=== PATIENT | male | born 1985 | race Caucasian/White ===

== ENCOUNTER 2017-09-29 06:27 | Inpatient (IN) | payer MEDICAID ==
[2017-09-29] MEDS ORDERED: Scopolamine 1.5 MG Transdermal Patch TRDERM ONE (06:30)
[2017-09-29] MEDS ORDERED: Gabapentin 300 MG Cap PO ONE (06:30)
[2017-09-29] MEDS ORDERED: Acetaminophen 500 MG Tab PO ONE (06:30)
[2017-09-29] MEDS ORDERED: Celecoxib 200 MG Cap PO ONE (06:30)
[2017-09-29] MEDS ORDERED: fentaNYL 250 MCG/5 ML SDV ONE ×3 (06:44→10:20)
[2017-09-29] MEDS ORDERED: Glycopyrrolate 0.2 MG/ML 5 ML MDV ONE (06:44)
[2017-09-29] MEDS ORDERED: Succinylcholine 200 MG/10 ML MDV ONE (06:44)
[2017-09-29] MEDS ORDERED: Ondansetron 4 MG/2 ML SDV ONE (06:44)
[2017-09-29] MEDS ORDERED: Neostigmine Methylsulfate 1 MG/ML 5 ML Syringe ONE (06:44)
[2017-09-29] MEDS ORDERED: Propofol 200 MG/20 ML SDV ONE (06:44)
[2017-09-29] MEDS ORDERED: Rocuronium 50 MG/5 ML Vial ONE (06:44)
[2017-09-29] MEDS ORDERED: Dexamethasone 4 MG/ML SDV ONE (06:44)
[2017-09-29] MEDS ORDERED: Dextrose 5%-Lactated Ringers 1,000 ML IV SCH (07:00)
[2017-09-29] MEDS ORDERED: cefOXitin 2 GM Vial ONE (07:35)
[2017-09-29] MEDS ORDERED: cefOXitin 2 GM in Sodium Chloride 0.9% 50 ML IV ONE (08:15)
[2017-09-29] MEDS ORDERED: Ketamine 500 MG/5 ML MDV IV SCH (08:30)
[2017-09-29] MEDS ORDERED: Ropivacaine 60 ML, Dexamethasone 8 MG, EPINEPHrine 0.4 MG, Sodium Chloride 0.9% 17.6 ML NERVRT SCH ×4 (08:30)
[2017-09-29] MEDS ORDERED: Lidocaine 0.4%/D5W 2 GM/500 ML BAG IV SCH (08:30)
[2017-09-29] MEDS ORDERED: Lidocaine 2% 100 MG/5 ML Syringe IVPUSH ONE (08:30)
[2017-09-29] MEDS ORDERED: Lactated Ringers 1,000 ML ONE (09:37)
[2017-09-29] MEDS ORDERED: hydrOXYzine HCl 100 MG/2 ML SDV IM ONE (11:13)
[2017-09-29] MEDS ORDERED: fentaNYL 100 MCG/2 ML SDV IVPUSH ONE (11:19)
[2017-09-29] MEDS ORDERED: Labetalol 20 MG/4 ML Syringe IVPUSH PRN (13:00)
[2017-09-29] MEDS ORDERED: diphenhydrAMINE 50 MG/ML SDV IVPUSH PRN (13:00)
[2017-09-29] MEDS ORDERED: hydrOXYzine HCl 100 MG/2 ML SDV IM PRN (13:00)
[2017-09-29] MEDS ORDERED: Metoclopramide 10 MG/2 ML SDV IVPUSH PRN (13:00)
[2017-09-29] MEDS ORDERED: Ondansetron 4 MG/2 ML SDV IVPUSH PRN (13:00)
[2017-09-29] MEDS: Acetaminophen Soln 650 MG/20.3 ML UD Cup PO SCH ×2 (13:33→21:00)
[2017-09-29] MEDS: Gabapentin 250 MG/5 ML Solution ML 470 ML Bottle PO SCH ×2 (13:33→21:00)
[2017-09-29] MEDS: cefOXitin 2 GM in Sodium Chloride 0.9% 50 ML IV SCH ×2 (13:43→20:56)
[2017-09-29] MEDS: Pantoprazole 40 MG Vial IVPUSH SCH (13:50)
[2017-09-29] MEDS: MVI, Adult with Vitamin K 10 ML, Thiamine 100 MG, Chromium/Copper/Mang/Selen/Zn 1 ML in... IV SCH ×4 (17:36)
[2017-09-29] MEDS: Heparin Sodium 5,000 Units/ML Vial SUBCUT SCH ×2 (17:36→23:39)
[2017-09-29] MEDS: Dextrose 5%-Lactated Ringers 1,000 ML IV SCH (23:55)
[2017-09-30] MEDS: MVI, Adult with Vitamin K 10 ML, Thiamine 100 MG, Chromium/Copper/Mang/Selen/Zn 1 ML in... IV SCH ×4
[2017-09-30] MEDS: cefOXitin 2 GM in Sodium Chloride 0.9% 50 ML IV SCH ×2 (01:56→07:38)
[2017-09-30] MEDS: Acetaminophen Soln 650 MG/20.3 ML UD Cup PO SCH ×4 (01:57→20:02)
[2017-09-30] MEDS ORDERED: Iohexol 647 MG/ML 50 ML SDV PO STA (02:08)
[2017-09-30] MEDS: Dextrose 5%-Lactated Ringers 1,000 ML IV SCH (06:12)
[2017-09-30] MEDS: Celecoxib 200 MG Cap PO SCH (07:29)
--- NOTE | 2017-09-30 07:35 | PCM.SURGPN ---
- General Info Date of Service: 09/30/17 Date of Surgery/Procedure: 09/29/17 POD#: 1 Post-Op Diagnosis: Johan (BMI) 57.86 Functional Status: Reports: Pain Controlled, Tolerating Diet, Urinating - Review of Systems General: Reports: No Symptoms HEENT: Reports: No Symptoms Pulmonary: Reports: No Symptoms Cardiovascular: Reports: Chest Pain (sharp left shoulder pain that radiates to the chest with breathing) Gastrointestinal: Reports: No Symptoms, Abdominal Pain (incision sites) Genitourinary: Reports: No Symptoms Musculoskeletal: Reports: Shoulder Pain (left shoulder pain with breathing) Skin: Reports: No Symptoms Neurological: Reports: No Symptoms Psychiatric: Reports: No Symptoms Systems Review Comment:: Patient reports that he is feeling well today. Had some nausea this morning, however notes this is improving. Is tolerating diet. Notes that he has some left sided sharp shoulder pain that radiates to his left sided chest with inspiration. - Patient Data Vitals - Most Recent: Last Vital Signs Temp 37.3 C 09/30/17 07:14 Pulse 92 09/30/17 07:14 Resp 16 09/30/17 07:14 BP 136/79 09/30/17 07:14 Pulse Ox 95 09/30/17 07:14 Weight - Most Recent: 189.602 kg I&O - Last 24 Hours: Intake & Output 09/29/17 09/30/17 09/30/17 22:59 06:59 14:59 Intake Total 230 1950 Output Total 925 2305 Balance -695 -355 Lab Results Last 24 Hrs: Laboratory Results - last 24 hr 09/29/17 Range/Units 06:59 Blood Type O POSITIVE Gel Antibody Screen Negative Med Orders - Current: Current Medications Acetaminophen (Tylenol) 650 mg PO Q6H [facility] Last Admin: 09/30/17 01:57 Dose: 650 mg Celecoxib (Celebrex) 200 mg PO DAILY@0800 [facility] Last Admin: 09/30/17 07:29 Dose: 200 mg Cyanocobalamin (Vitamin B12) 1,000 mcg IM ONETIME ONE Stop: 10/01/17 09:01 Diphenhydramine HCl (Benadryl) 25 - 50 mg IVPUSH Q4H PRN PRN Reason: ITCHING Gabapentin (Neurontin) 300 mg PO TID [facility] Last Admin: 09/29/17 21:00 Dose: 300 mg Heparin Sodium (Porcine) (Heparin Sodium) 5,000 units SUBCUT Q8H [facility] Last Admin: 09/29/17 23:39 Dose: 5,000 units Hydroxyzine HCl (Vistaril) 75 - 100 mg IM Q4H PRN PRN Reason: pain Last Admin: 09/29/17 13:07 Dose: 100 mg Dextrose/Lactated Ringer's (Dextrose 5%-Lactated Ringers) 1,000 mls @ 175 mls/ hr IV ASDIRECTED [facility] Last Admin: 09/30/17 06:12 Dose: 175 mls/hr Multivitamins/Minerals 10 ml/Thiamine HCl 100 mg/ Chromium/Copper/Manganese/ Seleni/Zn 1 ml/ Dextrose/Lactated Ringer's 1,012 mls @ 175 mls/hr IV DAILY@ 1600 [facility] Last Admin: 09/30/17 00:00 Dose: 175 mls/hr Cefoxitin Sodium 2 gm/ Sodium (Chloride) 50 mls @ 100 mls/hr IV Q6H [facility] Stop: 09/30/17 08:29 Last Admin: 09/30/17 01:56 Dose: 100 mls/hr Labetalol HCl (Normodyne) 5 - 15 mg IVPUSH Q1H PRN PRN Reason: SBP over 160 OR DBP over 95 Metoclopramide HCl (Reglan) 10 mg IVPUSH Q6H PRN PRN Reason: NAUSEA NOT CONTROL BY ZOFRAN Miscellaneous Information (Remove Patch) 1 ea TRDERM ONETIME ONE Stop: 10/01/17 10:01 Scopolamine Patch (Check) 1 each TOP DAILY [facility] Stop: 10/01/17 13:01 Ondansetron HCl (Zofran) 4 mg IVPUSH Q4H PRN PRN Reason: Nausea/Vomiting Pantoprazole Sodium (Protonix Iv) 40 mg IVPUSH Q24H [facility] Last Admin: 09/29/17 13:50 Dose: 40 mg Discontinued Medications Acetaminophen (Tylenol Extra Strength) 1,000 mg PO ONETIME ONE Stop: 09/29/17 06:31 Last Admin: 09/29/17 07:14 Dose: 1,000 mg Cefoxitin Sodium (Mefoxin) Confirm Administered Dose 2 gm .ROUTE .STK-MED ONE Stop: 09/29/17 07:36 Last Admin: 09/29/17 09:44 Dose: 2 gm Celecoxib (Celebrex) 200 mg PO ONETIME ONE Stop: 09/29/17 06:31 Last Admin: 09/29/17 07:14 Dose: 200 mg Ropivacaine 60 ml/Dexamethasone 8 mg/Epinephrine HCl 0.4 mg/ Sodium Chloride 17.6 ml 0 ml NERVRT ASDIRECTED [facility] Last Admin: 09/29/17 08:17 Dose: 2 syringe Dexamethasone (Dexamethasone) Confirm Administered Dose 4 mg .ROUTE .STK-MED ONE Stop: 09/29/17 06:45 Fentanyl (Sublimaze) Confirm Administered Dose 250 mcg .ROUTE .STK-MED ONE Stop: 09/29/17 06:45 Fentanyl (Sublimaze) Confirm Administered Dose 250 mcg .ROUTE .STK-MED ONE Stop: 09/29/17 08:47 Fentanyl (Sublimaze) Confirm Administered Dose 250 mcg .ROUTE .STK-MED ONE Stop: 09/29/17 10:21 Fentanyl (Sublimaze) 100 mcg IVPUSH ONETIME ONE Stop: 09/29/17 11:20 Last Admin: 09/29/17 11:28 Dose: 100 mcg Gabapentin (Neurontin) 300 mg PO ONETIME ONE Stop: 09/29/17 06:31 Last Admin: 09/29/17 07:15 Dose: 300 mg Glycopyrrolate (Robinul) Confirm Administered Dose 1 mg .ROUTE .STK-MED ONE Stop: 09/29/17 06:45 Hydroxyzine HCl (Vistaril) 100 mg IM ONETIME ONE Stop: 09/29/17 11:14 Last Admin: 09/29/17 11:27 Dose: 100 mg Lidocaine HCl/Dextrose (Lidocaine 2 Gm/D5w 500 Ml) 2 gm in 500 mls @ 30 mls/hr IV .[id number] [facility] Stop: 09/30/17 01:00 Last Admin: 09/29/17 12:35 Dose: 2 mg/min, 30 mls/hr Ketamine HCl 100 mg/ Sodium (Chloride) 100 mls @ 22.5 mls/hr IV ASDIRECTED [facility] Cefoxitin Sodium 2 gm/ Sodium (Chloride) 50 mls @ 100 mls/hr IV ONETIME ONE Stop: 09/29/17 08:44 Last Admin: 09/29/17 08:16 Dose: 100 mls/hr Dextrose/Lactated Ringer's (Dextrose 5%-Lactated Ringers) 1,000 mls @ 100 mls/ hr IV ASDIRECTED [facility] Last Admin: 09/29/17 07:15 Dose: 100 mls/hr Lactated Ringer's (Ringers, Lactated) Confirm Administered Dose 1,000 mls @ as directed .ROUTE .STK-MED ONE Stop: 09/29/17 09:38 Iohexol (Omnipaque-300) 50 ml PO .ASDIRECTED [facility] Stop: 09/30/17 02:09 Last Admin: 09/30/17 02:16 Dose: 50 ml Ketamine HCl (Ketalar) 38 mg IV ASDIRECTED [facility] Lidocaine HCl (Xylocaine 2%) 180 mg IVPUSH ONETIME ONE Stop: 09/29/17 08:31 Last Admin: 09/29/17 12:36 Dose: Not Given Neostigmine Methylsulfate (Neostigmine) Confirm Administered Dose 5 mg .ROUTE .STK-MED ONE Stop: 09/29/17 06:45 Ondansetron HCl (Zofran) Confirm Administered Dose 4 mg .ROUTE .STK-MED ONE Stop: 09/29/17 06:45 Propofol (Diprivan 20 Ml) Confirm Administered Dose 200 mg .ROUTE .STK-MED ONE Stop: 09/29/17 06:45 Rocuronium [place] (Zemuron) Confirm Administered Dose 50 mg .ROUTE .STK-MED ONE Stop: 09/29/17 06:45 Scopolamine (Transderm-Scop) 1.5 mg TRDERM ONETIME ONE Stop: 09/29/17 06:31 Last Admin: 09/29/17 07:13 Dose: 1.5 mg Succinylcholine Chloride (Quelicin) Confirm Administered Dose 200 mg .ROUTE .STK -MED ONE Stop: 09/29/17 06:45 - Exam Wound/Incisions: Other (binder ) Quality Assessment: Supplemental Oxygen General: Alert, Oriented, Cooperative, No Acute Distress HEENT: Pupils Equal, Pupils Reactive Neck: Supple, Trachea Midline Lungs: Clear to Auscultation, Normal Respiratory Effort Cardiovascular: Regular Rate, Regular Rhythm GI/Abdominal Exam: Normal Bowel Sounds, Soft, Tender (incision sites) Extremities: Normal Inspection, Non-Tender Skin: Warm, Dry, Intact Neurological: No New Focal Deficit Psy/Mental Status: Alert, Normal Affect, Normal Mood - Problem List & Annotations (1) Status post gastric bypass for obesity SNOMED Code(s): 763116900, 408003443, 702390155, 324256363 Code(s): Z98.84 - BARIATRIC SURGERY STATUS Status: Acute Current Visit: Yes - Problem List Review Problem List Initiated/Reviewed/Updated: Yes - My Orders Last 24 Hours: Active Orders 24 hr Category Date Time Status Patient Status [ADT] Routine ADT 09/29/17 13:15 Active Ambulate [RC] ASDIRECTED Care 09/29/17 14:48 Active Cardiac Monitoring Discontinue [RC] Click to Edit Care 09/30/17 09:00 Active Cardiac Monitoring [RC] .As Directed Care 09/29/17 14:48 Active Communication Order [RC] ASDIRECTED Care 10/01/17 04:00 Active Communication Order [RC] Q4H Care 09/29/17 14:48 Active Dorsiflex/Plantar flex x 10 [RC] QSHIFT Care 09/29/17 14:48 Active Drain Management [RC] Q12H Care 09/29/17 14:48 Active Head of Bed Elevation [RC] CONTINUOUS Care 09/29/17 14:48 Active Insert Urinary Catheter [OM.PC] Per Unit Routine Care 09/29/17 14:48 Ordered Insert Urinary Catheter [OM.PC] Per Unit Routine Care 09/29/17 14:48 Ordered Intake and Output [RC] ASDIRECTED Care 09/29/17 14:48 Active Notify Provider Intake and Out [RC] ASDIRECTED Care 09/29/17 14:48 Active Notify Provider [RC] PRN Care 09/29/17 14:48 Active Oxygen Therapy [RC] ASDIRECTED Care 09/29/17 14:48 Active Pneumonia Education [RC] UPON Care 09/29/17 14:48 Active Pulse Oximetry [RC] ASDIRECTED Care 09/29/17 14:48 Active RT BiPAP/CPAP [RC] ASDIRECTED Care 09/29/17 14:48 Active RT Incentive Spirometry [RC] ASDIRECTED Care 09/29/17 14:48 Active Turn, Cough, Deep Breathe [RC] Q1HWA Care 09/29/17 14:48 Active Up to Chair [RC] TIDMEALS Care 09/29/17 14:48 Active Vital Signs [RC] PER UNIT ROUTINE Care 09/29/17 14:48 Active Consult to Bariatric Services [CONS] Routine Cons 09/29/17 14:48 Active Consult to Furnace Utility Operator [CONS] Routine Cons 09/29/17 14:48 Active Consult to Pharmacy [CONS] Routine Cons 09/29/17 14:48 Active Respiratory Care Assess and Treatment [CONS] Routine Cons 09/29/17 14:48 Active UGI wo KUB [CR] Timed Exams 09/30/17 04:00 Taken Acetaminophen [Tylenol] Med 09/29/17 14:00 Active 650 mg PO Q6H Celecoxib [CeleBREX] Med 09/30/17 08:00 Active 200 mg PO DAILY@0800 Cyanocobalamin (Vitamin B12) [Vitamin B12] Med 10/01/17 09:00 Once 1,000 mcg IM ONETIME ONE Dextrose 5%-Lactated Ringers 1,000 ml Med 09/29/17 13:00 Active IV ASDIRECTED Gabapentin [Neurontin] Med 09/29/17 14:00 Active 300 mg PO TID Heparin Sodium Med 09/29/17 16:00 Active 5,000 units SUBCUT Q8H Labetalol [Normodyne] Med 09/29/17 13:00 Active 5 - 15 mg IVPUSH Q1H PRN MVI, Adult with Vitamin K [Infuvite Adult] 10 ml Med 09/29/17 16:00 Active Thiamine [Vitamin B-1] 100 mg Chromium/Copper/Jason/Selen/Zn [Multitrace-5 Concentrate ] 1 ml Dextrose 5%-Lactated Ringers 1,000 ml IV DAILY@1600 Metoclopramide [Reglan] Med 09/29/17 13:00 Active 10 mg IVPUSH Q6H PRN Non-Formulary Medication [NF Drug] Med 09/29/17 13:00 Active 1 each TOP DAILY Ondansetron [Zofran] Med 09/29/17 13:00 Active 4 mg IVPUSH Q4H PRN Pantoprazole [ProTONIX IV] Med 09/29/17 14:00 Active 40 mg IVPUSH Q24H Remove Patch Med 10/01/17 10:00 Once 1 ea TRDERM ONETIME ONE cefOXitin [Mefoxin] 2 gm Med 09/29/17 14:00 Active Sodium Chloride 0.9% [Normal Saline] 50 ml IV Q6H diphenhydrAMINE [Benadryl] Med 09/29/17 13:00 Active 25 - 50 mg IVPUSH Q4H PRN hydrOXYzine HCl [Vistaril] Med 09/29/17 13:00 Active 75 - 100 mg IM Q4H PRN Abdominal Binder [OM.PC] Routine Oth 09/29/17 14:48 Ordered Oral Care [OM.PC] BID Oth 09/29/17 15:00 Ordered Oral Care [OM.PC] BID Oth 09/30/17 15:00 Ordered PT Screening [OM.PC] Routine Oth 09/29/17 14:48 Active Sequential Compression Device [OM.PC] Routine Oth 09/29/17 08:00 Ordered Sequential Compression Device [OM.PC] Routine Oth 09/29/17 14:48 Ordered Specialty Bed [OM.PC] Routine Oth 09/29/17 14:48 Ordered Resuscitation Status Routine Resus Stat 09/29/17 14:48 Ordered Medication Orders Acetaminophen (Tylenol) 650 mg PO Q6H [facility] Last Admin: 09/30/17 01:57 Dose: 650 mg Admin: 09/29/17 21:00 Dose: 650 mg Admin: 09/29/17 13:33 Dose: 650 mg Celecoxib (Celebrex) 200 mg PO DAILY@0800 [facility] Last Admin: 09/30/17 07:29 Dose: 200 mg Cyanocobalamin (Vitamin B12) 1,000 mcg IM ONETIME ONE Stop: 10/01/17 09:01 Diphenhydramine HCl (Benadryl) 25 - 50 mg IVPUSH Q4H PRN PRN Reason: ITCHING Gabapentin (Neurontin) 300 mg PO TID [facility] Last Admin: 09/29/17 21:00 Dose: 300 mg Admin: 09/29/17 13:33 Dose: 300 mg Heparin Sodium (Porcine) (Heparin Sodium) 5,000 units SUBCUT Q8H [facility] Last Admin: 09/29/17 23:39 Dose: 5,000 units Admin: 09/29/17 17:36 Dose: 5,000 units Hydroxyzine HCl (Vistaril) 75 - 100 mg IM Q4H PRN PRN Reason: pain Last Admin: 09/29/17 13:07 Dose: 100 mg Dextrose/Lactated Ringer's (Dextrose 5%-Lactated Ringers) 1,000 mls @ 175 mls/ hr IV ASDIRECTED [facility] Last Admin: 09/30/17 06:12 Dose: 175 mls/hr Infusion: 09/30/17 05:38 Dose: 175 mls/hr Admin: 09/29/17 23:55 Dose: 175 mls/hr Multivitamins/Minerals 10 ml/Thiamine HCl 100 mg/ Chromium/Copper/Manganese/ Seleni/Zn 1 ml/ Dextrose/Lactated Ringer's 1,012 mls @ 175 mls/hr IV DAILY@ 1600 [facility] Last Admin: 09/30/17 00:00 Dose: 175 mls/hr Admin: 09/29/17 17:36 Dose: 175 mls/hr Cefoxitin Sodium 2 gm/ Sodium (Chloride) 50 mls @ 100 mls/hr IV Q6H [facility] Stop: 09/30/17 08:29 Last Admin: 09/30/17 01:56 Dose: 100 mls/hr Admin: 09/29/17 20:56 Dose: 100 mls/hr Admin: 09/29/17 13:43 Dose: 100 mls/hr Labetalol HCl (Normodyne) 5 - 15 mg IVPUSH Q1H PRN PRN Reason: SBP over 160 OR DBP over 95 Metoclopramide HCl (Reglan) 10 mg IVPUSH Q6H PRN PRN Reason: NAUSEA NOT CONTROL BY ZOFRAN Miscellaneous Information (Remove Patch) 1 ea TRDERM ONETIME ONE Stop: 10/01/17 10:01 Scopolamine Patch (Check) 1 each TOP DAILY [facility] Stop: 10/01/17 13:01 Ondansetron HCl (Zofran) 4 mg IVPUSH Q4H PRN PRN Reason: Nausea/Vomiting Pantoprazole Sodium (Protonix Iv) 40 mg IVPUSH Q24H [facility] Last Admin: 09/29/17 13:50 Dose: 40 mg - Assessment Assessment (Free Text/Narrative):: S/p laparoscopic gastric bypass bita-en-y - Plan Plan (Free Text/Narrative):: -May shower today. -Encourage IS use. -Start step 2 (no cereal) diet. -Saline lock IV. -Amlodipine 10 mg PO and Lisinopril 20 mg for hypertension. -Zofran 4 mg PO q 4 hours prn for nausea/vomiting. -Zoloft 150 mg PO for history of depression. -Drink 30 mls q 20 minutes and record at bedside with goal of 1000 mL daily.
[2017-09-30] MEDS: Heparin Sodium 5,000 Units/ML Vial SUBCUT SCH ×2 (07:38→16:14)
[2017-09-30] MEDS ORDERED: Ondansetron 4 MG Tab.DIS PO PRN (07:45)
[2017-09-30] MEDS: Gabapentin 250 MG/5 ML Solution ML 470 ML Bottle PO SCH ×3 (08:43→22:13)
[2017-09-30] MEDS: SCOPOLAMINE PATCH CHECK TOP SCH (08:44)
[2017-09-30] MEDS: amLODIPine 10 MG Tab PO SCH (08:47)
[2017-09-30] MEDS: Lisinopril 20 MG Tab PO SCH (08:47)
[2017-09-30] MEDS: Sertraline 50 MG Tab PO SCH (08:47)
--- NOTE | 2017-09-30 09:10 | CR ---
UGI wo KUB HISTORY: Gastric bypass. COMPARISON: None FINDINGS: Surgical drain adjacent to the small gastric remnant in the left upper quadrant. Contrast r eaches the small bowel which is normal in caliber. No contrast extravasation or bowel obstruction see n.
[2017-09-30] MEDS: Pantoprazole 40 MG Vial IVPUSH SCH (14:17)
[2017-10-01] MEDS: Acetaminophen Soln 650 MG/20.3 ML UD Cup PO SCH ×2 (01:07→07:55)
[2017-10-01] MEDS: Heparin Sodium 5,000 Units/ML Vial SUBCUT SCH ×2 (01:07→07:51)
[2017-10-01] MEDS: Celecoxib 200 MG Cap PO SCH (07:51)
[2017-10-01] MEDS: amLODIPine 10 MG Tab PO SCH (08:01)
[2017-10-01] MEDS: Lisinopril 20 MG Tab PO SCH (08:01)
[2017-10-01] MEDS: Sertraline 50 MG Tab PO SCH (08:02)
[2017-10-01] MEDS: SCOPOLAMINE PATCH CHECK TOP SCH (08:03)
[2017-10-01] MEDS: Gabapentin 250 MG/5 ML Solution ML 470 ML Bottle PO SCH (08:12)
[2017-10-01] MEDS ORDERED: Cyanocobalamin (Vitamin B12) 1,000 MCG/ML SDV IM ONE (09:00)
--- NOTE | 2017-10-01 09:20 | PCM.DCSUM1 ---
Discharge Summary - Hospital Course HPI Initial Comments: Admitted for bariatric surgery on 09/29/2017 with BMI of 57.86 Brief History: Patient underwent laparoscopic gastric bypass bita-en-y on 2017 and tolerated the procedure well. UGI was normal on 09/30/2017. His diet was advanced POD 1 and he tolerated this well. His pain has been under control since surgery. Home dose of lisinopril (40 mg daily) was cut in half (20 mg) due to blood pressures running a little lower after surgery. He felt well on POD 2 and thus was discharged home. - Discharge Data Discharge Date: 10/01/17 Discharge Disposition: Home, Self-Care 01 Condition: Good - Discharge Diagnosis/Problem(s) (1) Status post gastric bypass for obesity SNOMED Code(s): 187807111, 077611006, [id number], [id number] ICD Code: Z98.84 - BARIATRIC SURGERY STATUS Status: Acute - Patient Summary/Data Consults: Consultations 09/29/17 14:48 Consult to Bariatric Services [CONS] Routine Comment: Consult to Principal Programmer [CONS] Routine Comment: Physician Instructions: Quantity: Consult to Pharmacy [CONS] Routine Comment: Physician Instructions: Quantity: Respiratory Care Assess and Treatment [CONS] Routine Comment: Physician Instructions: Post-Op Pneumonia Prevention - Patient Instructions Diet: Drink 8-10+ Glasses/Day Diet, Other: Step 2 Gastric Bypass Diet without cereal for 2 weeks Activity: As Tolerated Driving: Do Not Drive (for 1 week ) Showering/Bathing: May Shower Wound/Incision Care: Keep Operative Site/Wound Site Clean and Dry Notify Provider of: Fever, Increased Pain, Nausea and/or Vomiting Other/Special Instructions: Use incentive inspirometer 10 times every hour while awake for 2 weeks - Discharge Plan Prescriptions/Med Rec: RX: Ondansetron [Zofran ODT] 4 mg PO Q4H PRN #30 tab.dis PRN Reason: Nausea/Vomiting Home Medications: Home Meds RX: Celecoxib [CeleBREX] 200 mg PO DAILY 09/25/17 [History] RX: Lisinopril [Prinivil] 40 mg PO DAILY 09/25/17 [History] RX: Sertraline [Zoloft] 150 mg PO DAILY 09/25/17 [History] RX: amLODIPine Besylate [Amlodipine Besylate] 10 mg PO DAILY 09/25/17 [History] RX: Acetaminophen [Tylenol] 650 mg PO Q6H cup 10/01/17 [Rx] RX: Ondansetron [Zofran ODT] 4 mg PO Q4H PRN #30 tab.dis 10/01/17 [Rx] Patient Handouts: Laparoscopic Gastric Bypass Surgery, Care After, Preventing Constipation After Surgery Referrals: Rose Locke PA-C [Physician Foot Orthopedist] - 10/09/17 10:00 am - General Info Date of Service: 10/01/17 Admission Dx/Problem (Free Text: (BAR) BMI 57.86 Subjective Update: Patient reports that he is feeling well today. States that he is passing gas but no BM yet. He continues to have the left shoulder blade pain that radiates to the anterior left chest wall however believes it is somewhat improved today. He feels ready to go home. Functional Status: Reports: Pain Controlled, Tolerating Diet, Ambulating, Urinating, Incentive Spirometry - Review of Systems General: Reports: No Symptoms HEENT: Reports: No Symptoms Pulmonary: Reports: No Symptoms Cardiovascular: Reports: Chest Pain (originates in left shoulder blade and radiates to left anterior chest wall, improving) Gastrointestinal: Reports: Flatus, Other (has not had a bowel movement yet) Genitourinary: Reports: No Symptoms Musculoskeletal: Reports: Shoulder Pain (sharp left shoulder blade pain) Skin: Reports: No Symptoms Neurological: Reports: No Symptoms Psychiatric: Reports: No Symptoms - Patient Data Vitals - Most Recent: Last Vital Signs Temp 37.4 C 10/01/17 07:59 Pulse 87 10/01/17 07:59 Resp 16 10/01/17 07:59 BP 163/81 H 10/01/17 08:01 Pulse Ox 93 L 10/01/17 07:59 Weight - Most Recent: 189.602 kg I&O - Last 24 hours: Intake & Output 09/30/17 10/01/17 10/01/17 22:59 06:59 14:59 Intake Total 790 250 590 Output Total 1655 645 20 Balance -865 -927 088 Med Orders - Current: Current Medications Acetaminophen (Tylenol) 650 mg PO Q6H [facility] Last Admin: 10/01/17 07:55 Dose: 650 mg Amlodipine Besylate (Norvasc) 10 mg PO DAILY [facility] Last Admin: 10/01/17 08:01 Dose: 10 mg Celecoxib (Celebrex) 200 mg PO DAILY@0800 [facility] Last Admin: 10/01/17 07:51 Dose: 200 mg Diphenhydramine HCl (Benadryl) 25 - 50 mg IVPUSH Q4H PRN PRN Reason: ITCHING Gabapentin (Neurontin) 300 mg PO TID [facility] Last Admin: 10/01/17 08:12 Dose: 300 mg Heparin Sodium (Porcine) (Heparin Sodium) 5,000 units SUBCUT Q8H [facility] Last Admin: 10/01/17 07:51 Dose: 5,000 units Hydroxyzine HCl (Vistaril) 75 - 100 mg IM Q4H PRN PRN Reason: pain Last Admin: 09/29/17 13:07 Dose: 100 mg Labetalol HCl (Normodyne) 5 - 15 mg IVPUSH Q1H PRN PRN Reason: SBP over 160 OR DBP over 95 Lisinopril (Prinivil) 20 mg PO DAILY [facility] Last Admin: 10/01/17 08:01 Dose: 20 mg Metoclopramide HCl (Reglan) 10 mg IVPUSH Q6H PRN PRN Reason: NAUSEA NOT CONTROL BY ZOFRAN Miscellaneous Information (Remove Patch) 1 ea TRDERM ONETIME ONE Stop: 10/01/17 10:01 Last Admin: 10/01/17 09:03 Dose: Not Given Scopolamine Patch (Check) 1 each TOP DAILY [facility] Stop: 10/01/17 13:01 Last Admin: 10/01/17 08:03 Dose: Not Given Ondansetron HCl (Zofran) 4 mg IVPUSH Q4H PRN PRN Reason: Nausea/Vomiting Ondansetron HCl (Zofran Odt) 4 mg PO Q4H PRN PRN Reason: Nausea/Vomiting Pantoprazole Sodium (Protonix Iv) 40 mg IVPUSH Q24H [facility] Last Admin: 09/30/17 14:17 Dose: 40 mg Sertraline HCl (Zoloft) 150 mg PO DAILY [facility] Last Admin: 10/01/17 08:02 Dose: 150 mg Discontinued Medications Acetaminophen (Tylenol Extra Strength) 1,000 mg PO ONETIME ONE Stop: 09/29/17 06:31 Last Admin: 09/29/17 07:14 Dose: 1,000 mg Cefoxitin Sodium (Mefoxin) Confirm Administered Dose 2 gm .ROUTE .STK-MED ONE Stop: 09/29/17 07:36 Last Admin: 09/29/17 09:44 Dose: 2 gm Celecoxib (Celebrex) 200 mg PO ONETIME ONE Stop: 09/29/17 06:31 Last Admin: 09/29/17 07:14 Dose: 200 mg Ropivacaine 60 ml/Dexamethasone 8 mg/Epinephrine HCl 0.4 mg/ Sodium Chloride 17.6 ml 0 ml NERVRT ASDIRECTED [facility] Last Admin: 09/29/17 08:17 Dose: 2 syringe Cyanocobalamin (Vitamin B12) 1,000 mcg IM ONETIME ONE Stop: 10/01/17 09:01 Last Admin: 10/01/17 08:02 Dose: 1,000 mcg Dexamethasone (Dexamethasone) Confirm Administered Dose 4 mg .ROUTE .STK-MED ONE Stop: 09/29/17 06:45 Fentanyl (Sublimaze) Confirm Administered Dose 250 mcg .ROUTE .STK-MED ONE Stop: 09/29/17 06:45 Fentanyl (Sublimaze) Confirm Administered Dose 250 mcg .ROUTE .STK-MED ONE Stop: 09/29/17 08:47 Fentanyl (Sublimaze) Confirm Administered Dose 250 mcg .ROUTE .STK-MED ONE Stop: 09/29/17 10:21 Fentanyl (Sublimaze) 100 mcg IVPUSH ONETIME ONE Stop: 09/29/17 11:20 Last Admin: 09/29/17 11:28 Dose: 100 mcg Gabapentin (Neurontin) 300 mg PO ONETIME ONE Stop: 09/29/17 06:31 Last Admin: 09/29/17 07:15 Dose: 300 mg Glycopyrrolate (Robinul) Confirm Administered Dose 1 mg .ROUTE .STK-MED ONE Stop: 09/29/17 06:45 Hydroxyzine HCl (Vistaril) 100 mg IM ONETIME ONE Stop: 09/29/17 11:14 Last Admin: 09/29/17 11:27 Dose: 100 mg Lidocaine HCl/Dextrose (Lidocaine 2 Gm/D5w 500 Ml) 2 gm in 500 mls @ 30 mls/hr IV .[id number] [facility] Stop: 09/30/17 01:00 Last Admin: 09/29/17 12:35 Dose: 2 mg/min, 30 mls/hr Ketamine HCl 100 mg/ Sodium (Chloride) 100 mls @ 22.5 mls/hr IV ASDIRECTED [facility] Cefoxitin Sodium 2 gm/ Sodium (Chloride) 50 mls @ 100 mls/hr IV ONETIME ONE Stop: 09/29/17 08:44 Last Admin: 09/29/17 08:16 Dose: 100 mls/hr Dextrose/Lactated Ringer's (Dextrose 5%-Lactated Ringers) 1,000 mls @ 100 mls/ hr IV ASDIRECTED [facility] Last Admin: 09/29/17 07:15 Dose: 100 mls/hr Lactated Ringer's (Ringers, Lactated) Confirm Administered Dose 1,000 mls @ as directed .ROUTE .STK-MED ONE Stop: 09/29/17 09:38 Dextrose/Lactated Ringer's (Dextrose 5%-Lactated Ringers) 1,000 mls @ 175 mls/ hr IV ASDIRECTED [facility] Last Admin: 09/30/17 06:12 Dose: 175 mls/hr Multivitamins/Minerals 10 ml/Thiamine HCl 100 mg/ Chromium/Copper/Manganese/ Seleni/Zn 1 ml/ Dextrose/Lactated Ringer's 1,012 mls @ 175 mls/hr IV DAILY@ 1600 [facility] Last Admin: 09/30/17 00:00 Dose: 175 mls/hr Cefoxitin Sodium 2 gm/ Sodium (Chloride) 50 mls @ 100 mls/hr IV Q6H [facility] Stop: 09/30/17 08:29 Last Admin: 09/30/17 07:38 Dose: 100 mls/hr Iohexol (Omnipaque-300) 50 ml PO .ASDIRECTED [facility] Stop: 09/30/17 02:09 Last Admin: 09/30/17 02:16 Dose: 50 ml Ketamine HCl (Ketalar) 38 mg IV ASDIRECTED [facility] Lidocaine HCl (Xylocaine 2%) 180 mg IVPUSH ONETIME ONE Stop: 09/29/17 08:31 Last Admin: 09/29/17 12:36 Dose: Not Given Neostigmine Methylsulfate (Neostigmine) Confirm Administered Dose 5 mg .ROUTE .STK-MED ONE Stop: 09/29/17 06:45 Ondansetron HCl (Zofran) Confirm Administered Dose 4 mg .ROUTE .STK-MED ONE Stop: 09/29/17 06:45 Propofol (Diprivan 20 Ml) Confirm Administered Dose 200 mg .ROUTE .STK-MED ONE Stop: 09/29/17 06:45 Rocuronium [place] (Zemuron) Confirm Administered Dose 50 mg .ROUTE .STK-MED ONE Stop: 09/29/17 06:45 Scopolamine (Transderm-Scop) 1.5 mg TRDERM ONETIME ONE Stop: 09/29/17 06:31 Last Admin: 09/29/17 07:13 Dose: 1.5 mg Succinylcholine Chloride (Quelicin) Confirm Administered Dose 200 mg .ROUTE .STK -MED ONE Stop: 09/29/17 06:45 - Exam General: Reports: Alert, Oriented, Cooperative, No Acute Distress HEENT: Reports: Pupils Equal, Pupils Reactive Neck: Reports: Supple, Trachea Midline Lungs: Reports: Clear to Auscultation, Normal Respiratory Effort Cardiovascular: Reports: Regular Rate, Regular Rhythm, No Murmurs GI/Abdominal Exam: Normal Bowel Sounds, Soft, Tender (to incision sites) (Male) Exam: Deferred Rectal (Males) Exam: Deferred Back Exam: Reports: Normal Inspection, Full Range of Motion Extremities: Normal Inspection, No Pedal Edema Skin: Reports: Warm, Dry, Intact Wound/Incisions: Reports: Healing Well, No Drainage Neurological: Reports: No New Focal Deficit Psy/Mental Status: Reports: Alert, Normal Affect, Normal Mood Discharge Operative/Procedures - Procedures Performed Operations: laparoscopic gastric bypass [id number] 09/29/2017
--- NOTE | 2017-10-05 11:37 | OR ---
DATE OF PROCEDURE: 09/29/2017 PREOPERATIVE DIAGNOSIS: Morbid obesity. POSTOPERATIVE DIAGNOSES: 1. Morbid obesity. 2. Marked hepatomegaly. 3. Nodular lesion, posterior aspect of the left lobe of the liver. 4. Extreme fatty infiltration of small bowel mesentery resulting in a form of mobility of small bowel. 5. Paraesophageal diaphragmatic hernia. 6. Mediastinal lipoma. OPERATIVE PROCEDURES: Diagnostic laparoscopy with: 1. Laparoscopic Teresa-en-Y gastric bypass with long limb gastroenterostomy (99559). 2. Jared-Cut needle biopsy of left lobe of the liver (20796). 3. Wedge excision of left lobe of liver nodular lesion (83964). 4. Small bowel resection to facilitate adequate mobility of jejunojejunostomy for a relatively tension-free gastrojejunostomy (78782). 5. Repair of paraesophageal diaphragmatic hernia (88371). 6. Excision of mediastinal lipoma (75735). ANESTHESIA: General. TRAVEL PTA: TERI An. INDICATION FOR PROCEDURE: This is a 32-year-old presenting with longstanding morbid obesity and increasingly significant comorbidities. After preoperative evaluation and discussion, he wished to proceed with a gastric bypass procedure. Potential risks of the procedure including bleeding, infection, leaks from various GI tract closures, problems with bowel obstruction over time as well as the possibility of cardiopulmonary, septic, or hemorrhagic complications leading to were discussed, and the patient wishes to proceed. DETAILS OF PROCEDURE: The patient was taken to the operating room and after general endotracheal anesthesia was induced, he was placed in a lithotomy position. Orogastric tube was placed and the abdomen prepped and draped. At 15 cm inferior and 5 cm left of xiphoid process, a transverse incision was made and the peritoneal cavity entered under direct vision with an Optiview trocar and inflated to 15 mmHg pressure with CO2. Following this, bilateral subcostal transversus abdominis plane blocks were placed with direct visualization of the needle tip in the correct plane and injection of standard solution bilaterally. Following this, 5 additional trocars were placed across the upper and mid-abdomen. General exploration was undertaken. He was noted to have a marked hepatomegaly. Liver volume was roughly 2 to 3 times normal and grossly fatty infiltrated. Jared-Cut needle biopsies were obtained from left lobe of the liver. Minimal bleeding from the biopsy site was controlled with electrocautery. Following this, the omentum was divided in the midline up to the level of the transverse colon. The small bowel was then identified at the ligament of Treitz. Small bowel was then traced out 200 cm distal to that point. It was divided transversely with a CHRISTINE stapler. It was noted that, at this point, the small bowel mesentery due to extreme fatty infiltration of its mesentery, was not very mobile and to facilitate adequate mobility of the jejunojejunostomy and to have a reasonably tension-free gastrojejunostomy, roughly 10 cm of the biliopancreatic limb was then excised. This was divided proximally with a CHRISTINE hughes load, and the underlying mesentery divided with Harmonic Scalpel. Small bowel specimen was then delivered from the field. At that point, the small bowel was traced out an additional 150 cm. At that point, the enteroenterostomy was accomplished with an internal firing of the Endo-CHRISTINE 60-mm stapler. The common opening was then closed transversely with the same stapler, the angles anastomosed, and mesenteric defect approximated with some 0 Ethibond stitch along with fibrin sealant. The divided end of the Teresa limb was then from the mesentery for a few centimeters, which allowed an antecolic positioning of the Teresa limb up to the gastroesophageal junction without tension. The excision of the segment of the end of the biliopancreatic limb resulted in this being surprisingly very mobile Teresa limb at this point. The liver was then retracted anteriorly. The patient was noted to have roughly a 0.5-cm white nodular lesion on the underside of the left lobe of the liver. This was bigger than what would typically be expected with a bile duct hamartoma. Given this, this was excised by means of wedge excision using electrocautery and the specimen delivered from the field. Good hemostasis was established with electrocautery. As one examined the esophagogastric junction, the patient was noted to have a paraesophageal diaphragmatic hernia with prolapse of some perigastric fat and fundus of the stomach in a plane anterior to the course of the esophagus. This was reduced and the perineum overlying excised. As the diaphragmatic hernia was dissected free, a mediastinal lipoma was encountered. This was excised as well and sent for pathologic review. The diaphragmatic hernia was then repaired anteriorly with 0 Ethibond sutures reinforced with PTFE pledgets. The gastrointestinal balloon catheter was then inflated to 15 mL and pulled up snugly against the EG junction. Gastric wall over apex of balloon was then marked with electrocautery, balloon deflated and the catheter pulled up. The lesser omental tissue adjacent to the gastric cardia was then incised allowing the dissection behind the stomach at that level. Pouch formation was initiated with a transverse firing of the CHRISTINE stapler at the level of the cauterized charisse. The initial firings were with CHRISTINE black loads due to the stomach being in this case quite thick at that area and remaining firings to and through the angle of His with purple loads. Upon completion of the pouch, both staple lines were noted to be intact. The anvil of a 25-mm EEA stapler was then attached to Hardeman sump-type tube. The latter was brought down through the mouth and taken out through a small opening in the gastric pouch, allowing the anvil likewise to be pulled down to within the gastric pouch. The divided end of the Teresa limb was then opened and the main body of the EEA stapler passed several centimeters in the lumen of the small bowel, brought up the anvil, united with it, and thus creating the gastrojejunostomy. Upon removal of the stapler, double donuts of mucosa were noted within it, the small bowel and it was closed off with a vascular staple line. Gastrojejunostomy was reinforced with 3-0 Vicryl seromuscular stitch along with fibrin sealant. Leak test was accomplished with injection of 120 mL of air in the gastric pouch while submerged with cefoxitin-containing saline solution. No leaks were identified. A single Owen-Mccloud drain was then placed adjacent to the gastrojejunostomy and taken out through left lateral trocar site. With no further problems, trocars were removed from the peritoneal cavity and deflated. Incisions were closed using 4-0 Vicryl skin stitch, which was also used to fix the drain. The patient was taken to the recovery room in a satisfactory condition. Matthew Renteria MD /[id number]
== END 2017-10-01 10:05 | disposition home or self-care (01) | DRG 621 ==
LOC: JP.SDSSCHI 06:27 → JP.SDS 06:27 → EDSTATUS 07:30 → JP.2SS 11:15
PROVIDERS: ADMIT Surgery; ATTEND Surgery
PROC: 0D164ZA Bypass Stomach to Jejunum, Percutaneous Endoscopic Approach (ICD-10-PCS; principal; 2017-09-29)
PROC: 0FB24ZX Excision of Left Lobe Liver, Percutaneous Endoscopic Approach, Diagnostic (ICD-10-PCS; 2017-09-29)
PROC: 0FB24ZX Excision of Left Lobe Liver, Percutaneous Endoscopic Approach, Diagnostic (ICD-10-PCS; 2017-09-29)
PROC: 3E0T3BZ Introduction of Anesthetic Agent into Peripheral Nerves and Plexi, Percutaneous Approach (ICD-10-PCS; 2017-09-29)
PROC: 0BQT4ZZ Repair Diaphragm, Percutaneous Endoscopic Approach (ICD-10-PCS; 2017-09-29)
PROC: 0WBC4ZX Excision of Mediastinum, Percutaneous Endoscopic Approach, Diagnostic (ICD-10-PCS; 2017-09-29)
PROC: 0DB94ZX Excision of Duodenum, Percutaneous Endoscopic Approach, Diagnostic (ICD-10-PCS; 2017-09-29)
DX: E66.01 Morbid (severe) obesity due to excess calories (principal); Z68.43 Body mass index [BMI] 50.0-59.9, adult; R16.0 Hepatomegaly, not elsewhere classified; K44.9 Diaphragmatic hernia without obstruction or gangrene; K76.0 Fatty (change of) liver, not elsewhere classified; K59.8 Other specified functional intestinal disorders; K76.9 Liver disease, unspecified; D17.4 Benign lipomatous neoplasm of intrathoracic organs; I10 Essential (primary) hypertension; F32.9 Major depressive disorder, single episode, unspecified; F41.9 Anxiety disorder, unspecified; Z87.891 Personal history of nicotine dependence
CPT/HCPCS: 36415; 74240; 74240-26; 82962; 86850; 86900; 86901; 88304; 88307; 88313; A9270-GY; C9113; J0171; J0330; J0694; J1100; J1644; J2001; J2405; J2704; J2710; J2795; J3010; J3410; J3411; J3420; J7030; J7042; J7050; J7120; Q9967